=== PATIENT | female | born 1980 | race Caucasian/White ===

== ENCOUNTER 2021-01-23 06:25 | Day surgery (SDC) | payer OTHER ==
[~2021-01-23] VITALS: Ht 167.6 cm; Wt 95.0 kg
[~2021-01-23 06:25] MED LIST: PRILOSEC OTC20 MG PO
--- NOTE | 2021-01-23 09:17 | NUR ---
01/23/21 0917 Tamara Garza 0910- PT TO PACU IN SUPINE POSITION. DOES NOT RESPOND TO VERBAL OR TACTILE STIMULI. BREATHING EASY AND UNLABORED WITH ORAL AIRWAY IN PLACE. SPO2 >95% ON 6 L O2 VIA SIMPLE MASK. 0913- PT LIFTS HEAD AND OPENS EYES. ORAL AIRWAY REMOVED. SPO2 >95% ON 6 L O2 VIA SIMPLE MASK.
[2021-01-23] MEDS ORDERED: IBUPROFEN600 MG PO (09:24)
[2021-01-23] MEDS ORDERED: OXYCODON-ACETA1 EAC2 PO (09:25)
[2021-01-23] MEDS ORDERED: ACETAMINOPHEN500 MG PO (09:25)
--- NOTE | 2021-01-23 09:57 | NUR ---
PT ALERT, ORIENTED AND SUPPORTED BY MOTHER IN LAW GRACIE. PT ALITTLE UNEASY, GAVE COMFORT, OUTLINED THE DAYS SCHEDULE. PT ACKNOWLEDGED, REQUESTED PRAYER. GRACIE WILL REMAIN IN RM. WILL FOLLOW NEEDED
--- NOTE | 2021-01-23 10:40 | NUR ---
LE 1010: PT ARRIVES ON UNIT FROM PACU VIA STRETCHER. BEDSIDE REPORT RECEIVED AND CARE ASSUMED. PT DROWSY BY RESPONDS TO VERBAL STIM. VSS, LIGHT DRAINAGE TO LAP SITES X4. SCDS IN PLACE. DENIES NAUSEA. ICE WATER AND SNACKS PROVIDED. NO NEEDS VOICED, CALL LIGHT WITHIN REACH
--- NOTE | 2021-01-23 11:56 | NUR ---
PATIENT PUSHES HER CALL LIGHT AND ASKS TO USE THE BATHROOM. SHE IS UP INDEPENDENTLY. UMBILICUS SITE HAS A SCANT AMOUNT OF DRAINAGE ON THE GOWN. PATIENT VOIDS 300 ML CLEAR, YELLOW URINE AND SHE IS BACK IN BED. PATIENT HAS EATEN A CRACKER AND IS DRINKING WATER AND TOLERATING THAT WELL. PRN GIVEN FOR PAIN. SCDS IN PLACE. FAMILY AT THE BEDSIDE. CALL LIGHT WITHIN REACH.
--- NOTE | 2021-01-23 13:26 | NUR ---
PROVIDED PATIENT WITH DISCHARGE INSTRUCTION. PATIENT COMPLAINS OF PRESSURE UNDER COLLARBONE, DISCUSSED WITH PATIENT HOW THAT WOULD GET BETTER WITH TIME AND ACTIVITY. PROVIDED SCRIPT AND PICTURES TO [place], MOTHER IN LAW TOOK THEM. THEN ANSWERED QUESTIONS AND CONCERNS. PROVIDED WHEELCHAIR RIDE OUT TO [facility]. DRESSING SITES HAVE NO NEW DRAINAGE AND APPEAR TO BE INTACT WITH STERI STRIPS.
--- NOTE | 2021-01-23 16:20 | OR ---
[facility] [address], [place] [address] Signed DATE OF OPERATION: 01/23/2021 SURGEON: Marlen Garcia MD PREOPERATIVE DIAGNOSIS: Chronic calculous cholecystitis. POSTOPERATIVE DIAGNOSES: 1. Chronic calculous cholecystitis. 2. Obesity. PROCEDURES: 1. Laparoscopic cholecystectomy with intraoperative cholangiogram. 2. Surgeon-directed fluoroscopy. ANESTHESIA: General endotracheal, Spike Bridgette, DIRECTOR OF SOCIAL SERVICES, and local 20 mL of 0.25% Marcaine with epinephrine. INDICATION: This 40-year-old obese white woman is a patient of WILFRED Esteves, of [facility]. She has had rather typical right upper abdominal pain following food intake, worse with fatty food. The gallbladder ultrasound was performed at [facility] in [place] and 2 mobile gallstones were noted within the gallbladder lumen without signs of gallbladder wall thickening. She has family history of biliary disease in two of her aunts, who have undergone cholecystectomy, she says. She is admitted at this time to undergo cholecystectomy, preferably by laparoscopic approach. The risks of bleeding, infection, bile duct injury, need for open procedure, and other unforeseen complications were reviewed in detail. She understands and wished to proceed. FINDINGS: The liver appeared normal despite her body habitus. She had no evidence of fatty infiltration of the liver particularly. There were adhesions to the undersurface of the gallbladder. Transillumination did confirm cholesterolosis of the gallbladder wall. The gallbladder once excised showed two large gallstones about 2 cm each. The gallbladder itself was rather small. The cystic duct inserted in the medial aspect of the common bile duct. There was no abnormality of the common duct, with certainly no evidence of stone or obstruction. She tolerated the procedure well. DESCRIPTION OF PROCEDURE: Electronically Signed By: MARLEN GARCIA MD 01/23/21 1620 PATIENT NAME: CHICO EAGLE OPERATIVE REPORT DATE OF : 84 REPORT #: [id number] PHYSICIAN: MARLEN GARCIA MD PCP: HERSON DENISE REPORT IS CONFIDENTIAL AND NOT TO BE RELEASED WITHOUT AUTHORIZATION [facility] [address], [place] [address] Signed The patient was brought to the operating room, given a general endotracheal anesthetic. Preoperative antibiotic Ancef was given. Sequential compression device stockings were used and heparin subcutaneously administered. The abdomen was prepared with a chlorhexidine solution and draped sterilely. An infraumbilical incision was made, and using an open Tristin cannula technique, pneumoperitoneum achieved to a level of 14 mmHg of carbon dioxide gas. Intraabdominal inspection showed no sign of ascites or carcinomatosis. The gallbladder was obscured from view upon initial examination. The liver appeared normal. Three additional trocars were placed in the usual configuration in the subxiphoid, right midclavicular, and right anterior axillary line. The gallbladder was ultimately identified and elevated, and although small in aggregate, did have chronic inflammatory change. Omental adhesions were taken down with blunt and sharp dissection. The gallbladder was elevated as much as reasonably possible and the infundibulum grasped and dissection undertaken in the triangle of Calot with lateral retraction of the gallbladder. Friability of the tissues was quite notable. A small amount of bleeding was controlled with electrocautery and the infundibulum of gallbladder itself. Ultimately, the cystic duct was well identified. A rent in the infundibulum of the gallbladder was secured with an Endo loop, allowing for a clear field. Once certain that the cystic duct and gallbladder junction was well identified, a clip was applied across the gallbladder cystic duct junction and transverse choledochotomy made in the cystic duct. An Rasmussen-type cholangiocatheter was easily inserted into the cystic duct and intraoperative cholangiography was undertaken. Cholangiogram showed free flow of contrast in biliary tree with prompt emptying into the duodenum and good retrograde flow into the common hepatic duct and other biliary radicles. There was no sign of filling defect, anomaly, dilation, or other problem. Insertion of the cystic duct was on the left side of the duct. The cystic duct was triply clipped and divided and the gallbladder was then dissected free in a retrograde fashion using electrocautery. The gallbladder was placed in an endobag and extracted through the infraumbilical port site, opened on the back table and found to have profound cholesterolosis and two large stones, which largely took up the lumen of the gallbladder. There was no sign of malignancy. Irrigation was undertaken in subhepatic space. There was no sign of bile leak, bleeding, or other problems. Excess irrigation fluid was suctioned free. The trocars were removed under direct visualization showing no sign of bleeding. The infraumbilical fascial incision was reapproximated with interrupted 0 Vicryl suture. All wounds were copiously irrigated with saline solution and skin closed with interrupted 3-0 Vicryl. Steri-Strips were applied. The patient was ultimately extubated and transferred to the recovery room in good condition, having suffered no complications. Sponge, needle, and counts were reported as correct x3. Electronically Signed By: MARLEN GARCIA MD 01/23/21 1620 PATIENT NAME: CHICO EAGLE OPERATIVE REPORT DATE OF : 84 REPORT #: [id number] PHYSICIAN: MARLEN GARCIA MD PCP: HERSON DENISE REPORT IS CONFIDENTIAL AND NOT TO BE RELEASED WITHOUT AUTHORIZATION [address] [place], [place] [address] Signed MD MARISOL Jay/JOSEPH /[id number] cc: WILFRED Esteves Copies: HERSON DENISE ~ Electronically Signed By: MARLEN GARCIA MD 01/23/21 1620 PATIENT NAME: CHICO EAGLE OPERATIVE REPORT DATE OF : 84 REPORT #: [id number] PHYSICIAN: MARLEN GARCIA MD PCP: HERSON DENISE REPORT IS CONFIDENTIAL AND NOT TO BE RELEASED WITHOUT AUTHORIZATION
--- NOTE | 2021-01-27 16:24 | PATH ---
[facility] [address] [facility] [place], [place] [address] Signed SPECIMEN(S): A GALLBLADDER WITH STONES SPECIMEN SOURCE: A. GALLBLADDER WITH STONES CLINICAL HISTORY: Laparoscopic cholecystectomy. Chronic cholecystitis with calculus. FINAL PATHOLOGIC DIAGNOSIS: Gallbladder, cholecystectomy: - Chronic cholecystitis with cholesterolosis. - Cholelithiasis. NAL:cml:C2NR MICROSCOPIC EXAMINATION: Histologic sections of all submitted blocks are examined by light microscopy. These findings, together with the gross examination, support the pathologic diagnosis. GROSS DESCRIPTION: The specimen, labeled "SL, A.," and designated on the requisition "gallbladder with stones," is received in formalin and consists of Specimen: Previously opened gallbladder. Dimensions: 5.8 x 2.5 cm. Serosa: Violaceous and smooth. Cystic Duct: Opened, containing blue suture for possible identification purposes. Calculi: Two green-yellow, bosselated calculi measuring 3.4 x 1.9 x 1.8 cm in aggregate, ranging 1.5-1.7 cm in greatest dimension. Mucosa: Green-brown with enlarged prominent yellow flecking. Wall thickness: Up to 0.4 cm. Lymph node: No pericystic lymph nodes are grossly identified. Additional: None. Tube Closing Machine Operator sections are submitted in cassette (A1). AT (under the direct supervision of a pathologist) The Gross Description was prepared using a voice recognition system. The report was reviewed for accuracy; however, sound-alike word errors, addition and/or deletions may occur. If there is any question about this report, please contact Client Services. PERFORMING LABORATORY: PATIENT NAME: CHICO EAGLE PATHOLOGY DATE OF : 84 REPORT #: [id number] PHYSICIAN: ALCON SOARES PCP: HERSON DENISE REPORT IS CONFIDENTIAL AND NOT TO BE RELEASED WITHOUT AUTHORIZATION [facility] [address] [address] Signed The technical component was performed [place] [address] (Grind Operator: Danielle Payton MD; CLIA# [id number]). Professional interpretation was performed by [facility], [address] [address] (CLIA# [id number]). Diagnostician: Mera Mccarthy MD Pathologist Electronically Signed 01/27/2021 Copies: ~ PATIENT NAME: CHICO EAGLE PATHOLOGY DATE OF : 84 REPORT #: [id number] PHYSICIAN: ALCON SOARES PCP: HERSON DENISE REPORT IS CONFIDENTIAL AND NOT TO BE RELEASED WITHOUT AUTHORIZATION
== END 2021-01-23 12:45 | disposition home or self-care (01) ==
LOC: DS 06:25
PROVIDERS: ATTEND Surgery
PROC: BF13YZZ Fluoroscopy of Gallbladder and Bile Ducts using Other Contrast (ICD-10-PCS; 2021-01-23)
PROC: 0FC94ZZ Extirpation of Matter from Common Bile Duct, Percutaneous Endoscopic Approach (ICD-10-PCS; 2021-01-23)
PROC: 0FT44ZZ Resection of Gallbladder, Percutaneous Endoscopic Approach (ICD-10-PCS; principal; 2021-01-23 06:45)
DX: K80.10 Calculus of gallbladder with chronic cholecystitis without obstruction (principal); E66.9 Obesity, unspecified; K21.9 Gastro-esophageal reflux disease without esophagitis; Z83.79 Family history of other diseases of the digestive system; Z68.33 Body mass index [BMI] 33.0-33.9, adult
CPT/HCPCS: 00790; 74300; J0131; J0690; J1100; J1170; J1644; J1885; J2001; J2250; J2405; J2704; J3010; J7121; Q9967